=== PATIENT | male | born 1980 | race Caucasian/White ===

== ENCOUNTER 2019-01-19 14:43 | Emergency (ER) | payer BC ==
[~2019-01-19] VITALS: Wt 83.2 kg
[2019-01-19] MEDS ORDERED: ACETAMINOPHEN 325 MG TAB PO ONE (17:00)
[2019-01-19] MEDS ORDERED: IBUP-1542 PO (17:32)
--- NOTE | 2019-01-19 17:38 | ERD ---
ER Documentation Chief Complaint Chief Complaint L hand pain and swelling s/p transmission fell on L hand yesterday HPI 38-year-old male presents with left hand pain and bruising after a transmission fell on his left hand yesterday. He thought it would improve but today complains of persistent pain and bruising. He has no restricted range of motion set mildly due to pain. There is no warmth, erythema, bleeding. ROS All systems reviewed and are negative except as per history of present illness. Medications Home Meds Active Scripts Ibuprofen* (Motrin*) 600 Mg Tab, 600 MG PO Q6, #20 TAB Prov:HEIDI REDMOND MD 01/19/19 Allergies Allergies: Coded Allergies: No Known Allergy (Unverified , 01/19/19) PMhx/Soc History of Surgery: No Anesthesia Reaction: No Hx Neurological Disorder: No Hx Respiratory Disorders: No Hx Cardiac Disorders: No Hx Psychiatric Problems: No Hx Miscellaneous Medical Probl: No Hx Alcohol Use: No Hx Substance Use: No Hx Tobacco Use: No Smoking Status: Never smoker FmHx Family History: No diabetes, No coronary disease, No other Physical Exam Vitals Vital Signs Date Temp Pulse Resp B/P (MAP) Pulse Ox O2 O2 Flow FiO2 Time Delivery Rate 01/19/19 97.5 65 20 138/59 99 14:49 (85) Physical Exam Const: No acute distress Head: Atraumatic Eyes: Normal Conjunctiva ENT: Normal External Ears, Nose and Mouth. Neck: Full range of motion. No meningismus. Resp: Clear to auscultation bilaterally Cardio: Regular rate and rhythm, no murmurs Abd: Soft, non tender, non distended. Normal bowel sounds Skin: No petechiae or rashes Back: No midline or flank tenderness Ext: No cyanosis, or edema. Bruising and swelling across the first and second metacarpal area. No restricted range of motion weakness, no deficits, warmth or erythema. No snuffbox tenderness. Neur: Awake and alert Psych: Normal Mood and Affect Results 24 hrs Current Medications Medications Dose Sig/Devin Start Time Status Last (Trade) Ordered Route PRN Stop Time Admin Dose Reason Admin 650 mg ONCE ONCE 01/19/19 DC 01/19/19 Acetaminophen PO 17:00 17:05 (Tylenol 01/19/19 17:01 Tab) Procedures/MDM X-ray left hand 3V interpreted by me: Scaphoid: Normal Bones: No fracture Joints: No dislocation Foreign body: None . Impression-normal left hand x-ray Patient placed in left hand is bandaged. Patient is neurovascular intact after Deandre bandage. Patient presents with signs and symptoms of left hand contusion without signs of fracture, dislocation, ischemia, deficits or infection. Patient will be discharged home with instructions for ice and elevation, primary care follow-up and return precautions.. patient was stable with no new complaints during the ER course. Clinically, there is no current evidence to suggest meningitis, sepsis, acute abdomen, pneumonia, stroke, acute coronary syndrome, pulmonary embolism, aortic dissection or any other emergent condition appearing to require further evaluation or hospitalization. Patient counseled regarding my diagnostic impression and care plan. Prior to discharge all questions answered. Pt agrees with treatment plan and understands strict return precautions. Pt is instructed to follow up with primary care provider within 24- 48 hours. Precautionary instructions provided including instructions to return to the ER if not improving or for any worsening or changing symptoms or concerns. Departure Diagnosis: Primary Impression: Injury of hand Encounter type: initial encounter Laterality: left Qualified Codes: S69. 92XA - Unspecified injury of left wrist, hand and finger(s), initial encounter Condition: Stable Patient Instructions: Sprain Hand Referrals: NO PRIMARY,CARE PHYSICIAN (PCP) Additional Instructions: X-ray read as normal. Likely contusion. Ice and elevate at home. Recheck for redness, fevers, or with primary care doctor within the next week. HEIDI REDMOND MD Jan 19, 2019 17:38
[2019-01-19 18:00] VITALS: BP 116/60; PULSE 70; RESP 18
== END 2019-01-19 18:10 | disposition home or self-care (01) ==
LOC: FTE 14:43
DX: S69.92XA Unspecified injury of left wrist, hand and finger(s), initial encounter (principal); W20.8XXA Other cause of strike by thrown, projected or falling object, initial encounter; Y92.9 Unspecified place or not applicable
CPT/HCPCS: 73130; 99283; Z7610